=== PATIENT | female | born 1970 | race Caucasian/White ===

== ENCOUNTER 2017-10-30 09:00 | Inpatient (IN) | payer OTHER ==
[2017-10-26 11:16] VITALS: BMI 21.2
[2017-11-02] MEDS ORDERED: Lactated Ringer's 1,000 ML IV ONE ×5 (15:26→20:30)
[2017-11-02] MEDS ORDERED: Propofol 10 mg/ml Inj (20 ML) ONE (15:36)
[2017-11-02] MEDS ORDERED: Midazolam 2 MG/2 ML VIAL ONE (15:36)
[2017-11-02] MEDS ORDERED: ceFAZolin IV 2 gm in Dextrose 2 GM/50 ML BAG IVPB ONE (15:37)
[2017-11-02] MEDS ORDERED: Rocuronium 10 mg/ml (5 ml) ONE (15:39)
[2017-11-02] MEDS ORDERED: Morphine 4 MG/ML VIAL ONE (16:33)
[2017-11-02] MEDS ORDERED: Methylene Blue 10 mg/mL(10ml) IV ONE (18:07)
[2017-11-02] MEDS ORDERED: Neostigmine Methylsulfate 3mg/3ml Syringe IV ONE (18:14)
[2017-11-02 18:24] LABS: HEMATOCRIT 29.8 % (34.0-47.0)
[2017-11-02] MEDS ORDERED: DiphenhydrAMINE 50 mg/ml Inj IVP PRN (18:33)
[2017-11-02] MEDS ORDERED: Morphine Monoject Barrel PCA 1mg/ml IV PRN (18:33)
[2017-11-02] MEDS: HYDROmorphone 0.5 mg/0.5 ml ISec IVP PRN ×3 (18:49→19:22)
--- NOTE | 2017-11-02 19:31 | PCM.SURG1 ---
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 General Surgery evlatuion Dr Garcia recommend removal. Cystoscopy bilateral uteral jets visualized. Dr. Surya Virgen was surgicla transportation assistant and eseential in gaining entry, trecatin, epxosure, holding bladder blade, obtaining hemostaiss, removing speicimens , closing all lateyrs and was present ofr entire case. Post-Operative Diagnosis: same as above Operation Performed: Total abdominal hysteerectomy, bilateral salpingectomy, exicsion of omental mass supscion for parastic myoma, cystoscopy Specimen/Specimens Removed: uterus, cervix, left and right fallopian tubes, omental mass Estimated Blood Loss: EBL {In ML}: 500 Blood Products Given: N/A Drains Used: No Drains Post-Op Condition: Good Date of Surgery/Procedure: 11/02/17 Time of Surgery/Procedure: 15:30
[2017-11-02] MEDS: ceFAZolin 1 GM in Sodium Chloride 0.9% 100 ML IVPB SCH (23:51)
[2017-11-03] MEDS: HYDROmorphone 0.5 mg/0.5 ml ISec IVP PRN ×3 (02:39→20:19)
--- NOTE | 2017-11-03 04:18 | CP.PCM.PN ---
Subjective - Date & Time of Evaluation Date of Evaluation: 11/03/17 Time of Evaluation: 04:00 - Subjective Subjective: Pt seen and examined adn reports pain is controlled after chaning to Dilaudid and Toradal. Pt not yet ambulating, +[place], toleratign ice chips, denies any lightheadness, dizzyness, CP, SOB Objective - Vital Signs/Intake and Output Vital Signs (last 24 hours): Temp Pulse Resp BP Pulse Ox 99.3 F 90 20 106/70 100 11/03/17 00:00 11/03/17 00:00 11/03/17 00:00 11/03/17 00:00 11/03/17 00:00 Intake and Output: 11/02/17 11/03/17 18:59 06:59 Output Total 1000 Balance -1000 - Medications Medications: Current Medications Diphenhydramine HCl (Benadryl) 25 mg IVP Q6 PRN PRN Reason: Itching / Pruritus Hydromorphone HCl (Dilaudid) 1 mg IVP Q4H PRN PRN Reason: Pain, moderate (4-7) Last Admin: 11/03/17 02:39 Dose: 1 mg Cefazolin Sodium 1 gm/ Sodium (Chloride) 100 mls @ 200 mls/hr IVPB Q8H ADORE Stop: 11/03/17 15:59 Last Admin: 11/02/17 23:51 Dose: 200 mls/hr Ketorolac Tromethamine (Toradol) 30 mg IVP Q6 PRN PRN Reason: Pain, severe (8-10) Stop: 11/04/17 01:51 Last Admin: 11/03/17 02:24 Dose: 30 mg Ondansetron HCl (Zofran Inj) 4 mg IVP Q8H PRN PRN Reason: Nausea/Vomiting - Labs Labs: 11/02/17 18:21 - Constitutional Appears: Well, Non-toxic - Head Exam Head Exam: ATRAUMATIC, NORMAL INSPECTION - Eye Exam Eye Exam: EOMI, Normal appearance Pupil Exam: NORMAL ACCOMODATION - ENT Exam ENT Exam: Mucous Membranes Moist - Neck Exam Neck Exam: Normal Inspection - Respiratory Exam Respiratory Exam: Clear to Ausculation Bilateral, NORMAL BREATHING PATTERN - Cardiovascular Exam Cardiovascular Exam: +S1, +S2 - GI/Abdominal Exam GI & Abdominal Exam: Soft, Normal Bowel Sounds Additional comments: apprroparitely TTP near incision, no guarding,no rebound tenderness, no rigidity , +BS no vaignal bleeding INCISION C/D/I healing well, janel in place - Back Exam Back Exam: NORMAL INSPECTION - Neurological Exam Neurological Exam: Alert, Awake, Oriented x3 - Skin Skin Exam: Dry, Intact, Normal Color, Warm Additional comments: negative gardenia's sign Assessment and Plan (1) Hx of hysterectomy, total Assessment & Plan: 46 y/o s/p JOLANTA, b/l salpingectomy, excision of omental mass, cystoscop POD #1 1. Pain Managmaent : Diluadid/ Toradoal --> transition to PO 2. Diet Adance as tolerated 3. d/c madrid 8am 4. Abdominal binder 5. Incentive spirometer 6. Activity Out of bed with assistance 7. f/u AM labs Status: Acute
[2017-11-03 08:02] LABS: BASO % 0.1 % (0.0-2.0); HEMATOCRIT 29.5 % (34.0-47.0); LYMPH # 0.5 K/uL (1.0-4.3); MEAN CELL VOLUME 94.2 fL (81.0-99.0); MEAN CORPUSCULAR HEMOGLOBIN 31.7 pg (27.0-31.0); MEAN CORPUSCULAR HGB CONC 33.6 g/dL (33.0-37.0); MEAN PLATELET VOLUME 8.1 fL (7.2-11.7); MONO # 0.8 K/uL (0.0-0.8); MONO % 6.7 % (0.0-10.0); PLATELET COUNT 305 K/uL (130-400); RED CELL DISTRIBUTION WIDTH 12.5 % (11.5-14.5)
[2017-11-03 08:03] LABS: WHITE BLOOD COUNT 12.7 K/uL (4.8-10.8)
[2017-11-03 08:24] LABS: BLOOD UREA NITROGEN 8 mg/dL (7-17); CALCIUM 8.4 mg/dl (8.6-10.4); CARBON DIOXIDE 31 mmol/L (22-30); CHLORIDE 100 mmol/L (98-107); GFR AFRICAN-AMERICAN > 60; GLUCOSE,RANDOM 134 mg/dL (65-105); POTASSIUM 4.4 mmol/L (3.6-5.2); SODIUM 136 mmol/L (132-148)
[2017-11-03] MEDS: ceFAZolin 1 GM in Sodium Chloride 0.9% 100 ML IVPB SCH ×2 (08:24→16:06)
--- NOTE | 2017-11-03 08:38 | OP ---
PROCEDURE DATE: 11/02/2017 PREOPERATIVE DIAGNOSES: Abnormal uterine bleeding, pelvic pain, symptomatic fibroid uterus. POSTOPERATIVE DIAGNOSES: Abnormal uterine bleeding, pelvic pain, symptomatic fibroid uterus. PROCEDURES PERFORMED: Total abdominal hysterectomy, bilateral salpingectomy, excision of omental mass suspicion for parasitic myoma, cystoscopy. SPECIMEN REMOVED: Uterus, cervix, right and left fallopian tubes, omental mass. SURGEON: Lani Parks MD NUTRITION MANAGER: Surya Virgen MD. TYPE OF ANESTHESIA: General endotracheal. OPERATIVE FINDINGS: A 10-week size uterus, normal tubes and ovaries bilaterally, 7 cm. Parasitic myoma adherent to omentum. General Surgery evaluation by Dr. Aguilar recommended removal, cystoscopy, bilateral ureteral jets. Dr. Surya Virgen was the assembler surgical garment. He was essential in gaining anterior retraction, exposure, holding the bladder blade, obtaining hemostasis, removing specimens, closing all layers, and he was present the entire case. ESTIMATED BLOOD LOSS: 500 mL. BLOOD PRODUCTS: None. COMPLICATIONS: None. DESCRIPTION OF PROCEDURE: The patient was taken to the operating room and after adequate level of general anesthesia was achieved, the patient was then placed in the dorsal supine position and the Trendelenburg position, prepped and draped in the usual sterile fashion. A time-out confirmed correct patient and correct procedure, and The patient was given preoperative prophylactic antibiotics. Subsequently, a Pfannenstiel skin incision was made with scalpel and carried down to the underlying fascia with the Bovie. The fascia was opened up sharply. The fascia was extended to the length of the incision using the Mccain scissors. At this time, the rectus muscles were dissected from the fascia superiorly and inferiorly to the symphysis pubic. The rectus muscle midlines were opened sharply and extended superiorly and inferiorly. The peritoneum was visualized, grasped, opened sharply and extended superiorly and inferiorly towards the bladder. The abdominal contents were noted, in addition to the pelvic organs noted. The uterus was then exteriorized, and following this, a parasitic myoma-type mass was noted adherent to the omentum. At this point, General Surgery was then called for an intraoperative consult and Dr. Aguilar recommended excision with LigaSure device through a clear space. The mass was then removed, there was good hemostasis noted, and the mass was then sent to Pathology. There was careful inspection of the abdominal contents, but no other messes noted. The bowel was then packed away and the inferior and superior blades was then placed on the bowel self-retaining retractor with O'Swan-O'Anson retractor. Bowel was packed away from the operative site. The fundus of the uterus was then grasped with a corkscrew, tenaculum and retracted out of the pelvic cavity into the abdominal site. At this point, Joanna clamps were placed in both right and left cornual regions. Subsequently, the LigaSure cautery unit was used on the round ligament, which was grasped, cauterized and dissected. The bladder flap was then formed along the anterior portion of the broad ligament and the bladder flap was then pushed away down anteriorly over the lower uterine segment, away from the operative sites on both the left and right sides. Subsequently, the posterior leaf of the broad ligament was opened sharply and LigaSure device was then placed above the level of the ovary in both the right and left sides, taking care not to damage the bowel or the uterus, in which the utero-ovarian ligament was then cauterized and cut. The fallopian tube was then dissected with LigaSure device along the mesosalpinx up to the cornua and specimen was removed on either side and sent to Pathology. There was good hemostasis noted. Further dissection of broad ligament was then carried down posterior towards the uterine vessels. The bladder was pushed inferiorly down towards the vagina. Subsequently, the uterine vessels were then grasped again, dissected with Asa clamps, after being carefully skeletonized, and following this, were suture ligated with 0 Vicryl suture. The cardinal ligaments were further grasped, dissected and suture ligated with 0 Vicryl. At that point, Zeppelin clamps were then placed and used along the cardinal ligaments down towards the uterosacral ligaments. The cardinal ligaments were grasped, dissected with a scalpel, and then ligated with transfixion suture with 1 Vicryl suture down to the uterosacral ligament. The uterosacral ligaments were grasped, dissected, and suture ligated again with 1 Vicryl suture and transfixion suture. At this point, the bladder was then pushed over the vagina, and at this point, right-angle Zeppelin clamps were placed on the vagina at the level of the cervix and using the Cathleen scissors. The cervix was dissected away from the vagina. At this point, the vaginal cuff was then closed using sutures of 0 Vicryl from the midline to each lateral corner. After good hemostasis had been achieved in the vaginal cuff, both the right and adnexa area were visualized and there was good hemostasis noted. The cuff was intact and no bleeding noted. The bladder was visualized and no bleeding was noted. There was good hemostasis noted at the parasitic excision myoma site and all operative sites including the round ligament. Following this, FloSeal was then placed over the operative sites including the vaginal cuff. self-retaining retractor was then removed as well as the anterior and inferior blades. The lap packs were removed and at this point, general closure of the abdomen was then carried out. The peritoneum was reapproximated and closed with the muscle with 2-0 Vicryl suture in interrupted manner. The fascia was reapproximated and closed with 0 Vicryl, sutured in a running continuous fashion. The subcutaneous tissue was then irrigated, and there was good hemostasis noted, and was reapproximated using plain sutures. The skin was reapproximated and closed with janel. Following this, the abdomen was then cleaned and irrigated and incision was placed to the abdominal dressing. Following this, attention was then turned to the perineum, in which the Bergeron catheter was removed and the patient was given methylene blue IV by Anesthesia. The patient was then placed in a frog-leg position. A 9.5-Guamanian cystoscope was then used and the cystoscope was inserted using normal saline as a distention media. was noted and appeared to be normal. The bladder was normal and there was no evidence of sutures, perforation or cystotomy. Both the right and left ureteral orifices were each individually identified and noted to have bilateral ureteral jets. Following this, the cystoscope was then removed and a new Bergeron catheter then was reinserted. At the end of the procedure, all needles, sponge, and instrument counts were noted as correct x2. The patient tolerated the procedure well and was transferred to the recovery room in stable condition. Lani Parks MD
[2017-11-03 09:44] LABS: NEUTROPHIL 82 % (50-75); TOTAL CELLS COUNTED 100
[2017-11-04] MEDS: HYDROmorphone 0.5 mg/0.5 ml ISec IVP PRN (02:38)
[2017-11-04 08:26] LABS: BASO % 0.2 % (0.0-2.0); EOS % 0.1 % (0.0-4.0); HEMATOCRIT 26.4 % (34.0-47.0); LYMPH % 13.6 % (20.0-40.0); MEAN CELL VOLUME 95.1 fL (81.0-99.0); MEAN CORPUSCULAR HEMOGLOBIN 33.2 pg (27.0-31.0); MEAN CORPUSCULAR HGB CONC 34.9 g/dL (33.0-37.0); MEAN PLATELET VOLUME 8.6 fL (7.2-11.7); MONO # 0.6 K/uL (0.0-0.8); RED CELL DISTRIBUTION WIDTH 12.9 % (11.5-14.5)
--- NOTE | 2017-11-04 09:30 | CP.PCM.PN ---
<Destiny Sosa - Last Filed: 11/04/17 09:31> Subjective - Date & Time of Evaluation Date of Evaluation: 11/04/17 Time of Evaluation: 09:25 - Subjective Subjective: ASSEMBLER progress note: Patient seen and examined at bedside. Per nursing no acute events overnight. Patient is doing well, having pain at incision site. Ambulating and tolerating diet. Admits to feeling gasy but has not passed flatus yet, no BM. Urinating without difficulty. Denies headaches, dizziness, cp, palpitations, sob, urinary symptoms. Objective - Vital Signs/Intake and Output Vital Signs (last 24 hours): Temp Pulse Resp BP Pulse Ox 98.6 F 102 H 20 91/58 L 99 11/04/17 00:00 11/04/17 00:00 11/04/17 00:00 11/04/17 00:00 11/03/17 19:26 - Medications Medications: Current Medications Diphenhydramine HCl (Benadryl) 25 mg IVP Q6 PRN PRN Reason: Itching / Pruritus Docusate Sodium (Colace) 100 mg PO BID [facility] Ibuprofen (Motrin Tab) 600 mg PO Q6H PRN PRN Reason: Pain, Mild (1-3) Ondansetron HCl (Zofran Inj) 4 mg IVP Q8H PRN PRN Reason: Nausea/Vomiting Oxycodone/Acetaminophen (Percocet 5/325 Mg Tab) 1 tab PO Q4H PRN PRN Reason: Pain, moderate (4-7) Stop: 11/07/17 09:06 Sennosides (Senokot Tab) 8.6 mg PO DAILY [facility] Simethicone (Mylicon Chew Tab) 80 mg PO QID ADORE - Labs Labs: 11/04/17 08:00 11/03/17 07:44 - Constitutional Appears: Well, No Acute Distress - Head Exam Head Exam: ATRAUMATIC, NORMAL INSPECTION - ENT Exam ENT Exam: Mucous Membranes Moist - Respiratory Exam Respiratory Exam: NORMAL BREATHING PATTERN - Cardiovascular Exam Cardiovascular Exam: REGULAR RHYTHM - GI/Abdominal Exam GI & Abdominal Exam: Soft, Tenderness (appropriately tender) Additional comments: incision c/d/i - Extremities Exam Extremities Exam: Normal Inspection - Back Exam Back Exam: NORMAL INSPECTION - Neurological Exam Neurological Exam: Normal Gait - Psychiatric Exam Psychiatric exam: Normal Mood - Skin Skin Exam: Normal Color, Warm Assessment and Plan - Assessment and Plan (Free Text) Assessment: 47 year old female s/p JOLANTA, b/l salpingectomy, excision of omental mass, cystoscopy POD#2 Plan: -Stable, afebrile -Pain control with percocet and motrin prn -Hgb stable -Encourage ambulation and ISS use -Continue routine postop care -Plan discussed with attending Destiny Sosa DO PGY-1 <Lani Parks - Last Filed: 11/04/17 10:37> Objective - Vital Signs/Intake and Output Vital Signs (last 24 hours): Temp Pulse Resp BP Pulse Ox 99.5 F 93 H 18 102/61 98 11/04/17 08:00 11/04/17 08:00 11/04/17 08:00 11/04/17 08:00 11/04/17 08:00 - Medications Medications: Current Medications Diphenhydramine HCl (Benadryl) 25 mg IVP Q6 PRN PRN Reason: Itching / Pruritus Docusate Sodium (Colace) 100 mg PO BID [facility] Last Admin: 11/04/17 09:55 Dose: 100 mg Ibuprofen (Motrin Tab) 600 mg PO Q6H PRN PRN Reason: Pain, Mild (1-3) Last Admin: 11/04/17 09:56 Dose: 600 mg Ondansetron HCl (Zofran Inj) 4 mg IVP Q8H PRN PRN Reason: Nausea/Vomiting Oxycodone/Acetaminophen (Percocet 5/325 Mg Tab) 1 tab PO Q4H PRN PRN Reason: Pain, moderate (4-7) Stop: 11/07/17 09:06 Last Admin: 11/04/17 09:57 Dose: 1 tab Sennosides (Senokot Tab) 8.6 mg PO DAILY [facility] Simethicone (Mylicon Chew Tab) 80 mg PO QID [facility] Last Admin: 11/04/17 09:56 Dose: 80 mg - Labs Labs: 11/04/17 08:00 11/03/17 07:44 Assessment and Plan (1) Hx of hysterectomy, total Status: Acute - Assessment and Plan (Free Text) Plan: agree with above d/c iv pain medcatin for po pain medicain bowel regimen encurage mabution, incentive spriromenter anticed/c in bessie
[2017-11-04] MEDS: Simethicone 80 mg Chewtab PO SCH ×4 (09:56→22:01)
[2017-11-04] MEDS: Oxycodone/Acetaminophen 5/325 mg Tab PO PRN ×3 (09:57→17:37)
[2017-11-04 20:01] VITALS: RESP 18; TEMP 98.6; O2SAT 99
--- NOTE | 2017-11-05 09:10 | CP.PCM.PN ---
Subjective - Date & Time of Evaluation Date of Evaluation: 11/05/17 Time of Evaluation: 07:30 - Subjective Subjective: Pt seen and examined and reports pain is controlled with medication. pt is ambualtng voiding, passing flatus, +BM. pt deies any vaignal bleeding, fever, chills, nause, vomiting, cp, sob. ptis urinating without difficulty Objective - Vital Signs/Intake and Output Vital Signs (last 24 hours): Temp Pulse Resp BP Pulse Ox 98.6 F 75 18 99/62 L 99 11/04/17 19:30 11/04/17 19:30 11/04/17 19:30 11/04/17 19:30 11/04/17 19:30 - Medications Medications: Current Medications Diphenhydramine HCl (Benadryl) 25 mg IVP Q6 PRN PRN Reason: Itching / Pruritus Docusate Sodium (Colace) 100 mg PO BID [facility] Last Admin: 11/04/17 17:37 Dose: 100 mg Ibuprofen (Motrin Tab) 600 mg PO Q6H PRN PRN Reason: Pain, Mild (1-3) Last Admin: 11/05/17 00:00 Dose: 600 mg Ondansetron HCl (Zofran Inj) 4 mg IVP Q8H PRN PRN Reason: Nausea/Vomiting Oxycodone/Acetaminophen (Percocet 5/325 Mg Tab) 2 tab PO Q6H PRN PRN Reason: Pain, moderate (4-7) Stop: 11/07/17 12:28 Last Admin: 11/04/17 17:37 Dose: 2 tab Sennosides (Senokot Tab) 8.6 mg PO DAILY [facility] Last Admin: 11/04/17 22:00 Dose: 8.6 mg Simethicone (Mylicon Chew Tab) 80 mg PO QID [facility] Last Admin: 11/04/17 22:01 Dose: 80 mg - Labs Labs: 11/04/17 08:00 11/03/17 07:44 - Head Exam Head Exam: ATRAUMATIC, NORMAL INSPECTION - Eye Exam Eye Exam: EOMI, Normal appearance Pupil Exam: NORMAL ACCOMODATION - ENT Exam ENT Exam: Mucous Membranes Moist - Neck Exam Neck Exam: Normal Inspection - Respiratory Exam Respiratory Exam: Clear to Ausculation Bilateral, NORMAL BREATHING PATTERN - Cardiovascular Exam Cardiovascular Exam: Clicks, REGULAR RHYTHM, +S1, +S2 - GI/Abdominal Exam GI & Abdominal Exam: Soft, Normal Bowel Sounds Additional comments: non tender, no guarding, no rebound tenderness, no ritiidty, +BS Incsion C/D?I janel intact - Back Exam Back Exam: NORMAL INSPECTION - Neurological Exam Neurological Exam: CN II-XII Intact, Normal Gait, Oriented x3 - Psychiatric Exam Psychiatric exam: Normal Affect, Normal Mood - Skin Skin Exam: Intact Additional comments: negative homans'sign, negative calf tenderness Assessment and Plan (1) Hx of hysterectomy, total Assessment & Plan: d/c home rto 1 week for staple removal precautions give pt advsied not to take multipel pain medication Status: Acute
--- NOTE | 2017-11-05 09:14 | CP.PCM.DIS ---
Provider - Provider Date of Admission: 11/02/17 09:11 Attending physician: Lani Parks MD Time Spent in preparation of Discharge (in minutes): 25 Diagnosis - Discharge Diagnosis (1) Hx of hysterectomy, total Status: Acute Priority: Medium Hospital Course - Lab Results Lab Results: Most Recent Lab Values WBC 7.0 K/uL (4.8-10.8) 11/04/17 08:00 RBC 2.77 Mil/uL (3.80-5.20) L 11/04/17 08:00 Hgb 9.2 g/dL (11.0-16.0) L 11/04/17 08:00 Hct 26.4 % (34.0-47.0) L 11/04/17 08:00 MCV 95.1 fL (81.0-99.0) 11/04/17 08:00 MCH 33.2 pg (27.0-31.0) H 11/04/17 08:00 MCHC 34.9 g/dL (33.0-37.0) 11/04/17 08:00 RDW 12.9 % (11.5-14.5) 11/04/17 08:00 Plt Count 269 K/uL (130-400) 11/04/17 08:00 MPV 8.6 fL (7.2-11.7) 11/04/17 08:00 Neut % (Auto) 78.1 % (50.0-75.0) H 11/04/17 08:00 Lymph % (Auto) 13.6 % (20.0-40.0) L 11/04/17 08:00 [place] % (Auto) 8.0 % (0.0-10.0) 11/04/17 08:00 Eos % (Auto) 0.1 % (0.0-4.0) 11/04/17 08:00 Baso % (Auto) 0.2 % (0.0-2.0) 11/04/17 08:00 Neut # 5.5 K/uL (1.8-7.0) 11/04/17 08:00 Lymph # 1.0 K/uL (1.0-4.3) 11/04/17 08:00 [place] # 0.6 K/uL (0.0-0.8) 11/04/17 08:00 Eos # 0.0 K/uL (0.0-0.7) 11/04/17 08:00 Baso # 0.0 K/uL (0.0-0.2) 11/04/17 08:00 Neutrophils % (Manual) 82 % (50-75) H 11/03/17 07:44 Band Neutrophils % 13 % (0-2) H* 11/03/17 07:44 Lymphocytes % (Manual) 3 % (20-40) L 11/03/17 07:44 Monocytes % (Manual) 2 % (0-10) 11/03/17 07:44 Toxic Granulation Present 11/03/17 07:44 Platelet Estimate Normal (NORMAL) 11/03/17 07:44 Macrocytosis (manual) Slight 11/03/17 07:44 Sodium 136 mmol/L (132-148) 11/03/17 07:44 Potassium 4.4 mmol/L (3.6-5.2) 11/03/17 07:44 Chloride 100 mmol/L (98-107) 11/03/17 07:44 Carbon Dioxide 31 mmol/L (22-30) H 11/03/17 07:44 Anion Gap 10 (10-20) 11/03/17 07:44 BUN 8 mg/dL (7-17) 11/03/17 07:44 Creatinine 0.6 mg/dL (0.7-1.2) L 11/03/17 07:44 Est GFR ( Amer) > 60 11/03/17 07:44 Est GFR (Non-Af Amer) > 60 11/03/17 07:44 Random Glucose 134 mg/dL (65-105) H 11/03/17 07:44 Calcium 8.4 mg/dl (8.6-10.4) L 11/03/17 07:44 Blood Type O POSITIVE 11/02/17 10:13 Antibody Screen Negative 11/02/17 10:13 - Hospital Course Hospital Course: s/p JOLANTA, b/l salpingectomy, excision of omenstal mass supscion for parastic myoma, cystosocpy oeprative findgns d/w patient normal postop course Discharge Exam - Head Exam Head Exam: ATRAUMATIC, NORMAL INSPECTION - Respiratory Exam Respiratory Exam: Clear to PA & Lateral, NORMAL BREATHING PATTERN, UNREMARKABLE - Cardiovascular Exam Cardiovascular Exam: REGULAR RHYTHM, +S1, +S2 - GI/Abdominal Exam GI & Abdominal Exam: Normal Bowel Sounds, Soft, Unremarkable - Neurological Exam Neurological exam: CN II-XII Intact, Oriented x3 - Psychiatric Exam Psychiatric exam: Normal Affect, Normal Mood - Skin Skin Exam: Dry, Intact Discharge Plan - Discharge Medications Prescriptions: Ibuprofen [Motrin Tab] 600 mg PO Q6H PRN 5 Days #20 tab PRN Reason: Pain, Mild (1-3) Oxycodone HCl/Acetaminophen [Endocet 5-325 Tablet] 1 each PO Q6 #14 tablet - Follow Up Plan Condition: GOOD Disposition: HOME/ ROUTINE Patient education suggested?: Yes
[2017-11-05] MEDS: Simethicone 80 mg Chewtab PO SCH (09:36)
[2017-11-05] MEDS: Oxycodone/Acetaminophen 5/325 mg Tab PO PRN (09:39)
[2017-11-05 13:49] VITALS: BP 102/63; PULSE 83
== END 2017-11-05 16:30 | disposition home or self-care (01) | DRG 359 ==
LOC: C.9S 11-02 09:11 → C.4M 11-02 19:47
PROVIDERS: ADMIT Obstetrics & Gynecology; ATTEND Obstetrics & Gynecology
PROC: 0TJB8ZZ Inspection of Bladder, Via Natural or Artificial Opening Endoscopic (ICD-10-PCS; 2017-11-02)
PROC: 0UT70ZZ Resection of Bilateral Fallopian Tubes, Open Approach (ICD-10-PCS; principal; 2017-11-02 09:00)
PROC: 0UT90ZZ Resection of Uterus, Open Approach (ICD-10-PCS; 2017-11-02 09:00)
DX: D25.1 Intramural leiomyoma of uterus (principal); N72 Inflammatory disease of cervix uteri